=== PATIENT | male | born 1955 | race Hispanic/Latino ===

== ENCOUNTER 2018-11-29 07:03 | Emergency (ER) | payer MEDICARE, SELFPAY | END 2018-11-29 07:21 | disposition home or self-care (01) | LOC: ERS 07:03 | DX: S39.012A Strain of muscle, fascia and tendon of lower back, initial encounter (principal); I25.10 Atherosclerotic heart disease of native coronary artery without angina pectoris; Z79.899 Other long term (current) drug therapy; X50.0XXA Overexertion from strenuous movement or load, initial encounter | CPT/HCPCS: 99283 ==

== ENCOUNTER 2018-11-30 14:45 | Outpatient (CLI) | payer MEDICARE ==
--- NOTE | 2018-11-30 15:53 | RAD ---
XR Lumbar Spine 2 Or 3 View History: [Acute bilateral low back pain without sciatica] Comparison: None. Findings: There is a round retroperitoneal possibly left lower lobe calcification. No dilated loops o f large or small bowel. There is no acute fracture or malalignment. Moderate narrowing of the L3-4 L4-5 and L5-S1 disc spaces . Moderate facet arthropathy at L4-5 and L5-S1. Mild vascular calcifications. Impression: Chronic findings. No acute abnormality.
== END 2018-11-30 14:46 | disposition home or self-care (01) ==
LOC: BICRAD 14:45
DX: M54.5 Low back pain (principal)
CPT/HCPCS: 72100